=== PATIENT | male | born 2000 | race Caucasian/White ===

== ENCOUNTER 2019-04-08 03:45 | Emergency (ER) | payer SELFPAY ==
[2019-04-08 04:20] VITALS: BMI 19.6
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
[2019-04-08 06:02] LABS: BASO % 0.5 % (0-2.0); EOS % 1.6 % (0-4.5); HEMATOCRIT 46.7 % (35.4-49); MCH 29.3 pg (25.7-33.7); MCHC 34.2 g/dl (32.0-35.9); MEAN CELL VOLUME 85.6 fl (80-96); MEAN PLT VOLUME 9.7 fl (7.5-11.1); MONO % 5.7 % (3.8-10.2); NEUT % 65.2 % (42.8-82.8); PLATELET COUNT 177 K/MM3 (134-434); RBC 5.45 M/mm3 (4.00-5.60); RDW 13.4 % (11.9-15.9)
[2019-04-08 06:28] LABS: ALBUMIN 4.4 g/dl (3.4-5.0); BILIRUBIN,TOTAL 0.4 mg/dL (0.2-1); BLOOD UREA NITROGEN 13.8 mg/dL (7-18); CALCIUM 9.1 mg/dL (8.5-10.1); CREATININE 0.8 mg/dL (0.55-1.3); POTASSIUM 3.9 mmol/L (3.5-5.1)
[2019-04-08 06:29] LABS: PHOSPHOROUS 3.2 mg/dL (2.5-4.9)
[2019-04-08 06:41] VITALS: TEMP 98.1
[2019-04-08 07:40] VITALS: BP 114/73; PULSE 64
--- NOTE | 2019-04-08 11:31 | EKG ---
Test Reason : Blood Pressure : / mmHG Vent. Rate : 104 BPM Atrial Rate : 104 BPM P-R Int : 128 ms QRS Dur : 104 ms QT Int : 342 ms P-R-T Axes : 075 093 070 degrees QTc Int : 449 ms SINUS TACHYCARDIA RIGHTWARD AXIS ST ELEVATION, CONSIDER EARLY REPOLARIZATION, PERICARDITIS, OR INJURY ABNORMAL ECG NO PREVIOUS ECGS AVAILABLE Confirmed by SATISH VENEGAS MD ([id number]) on 04/08/2019 11:31:15 AM Referred By: Confirmed By:SATISH VENEGAS MD
== END 2019-04-08 07:39 | disposition home or self-care (01) ==
LOC: JER 03:45
DX: R55 Syncope and collapse (principal)
CPT/HCPCS: 36415; 71046-TC-FY; 80053; 82550; 84100; 84484; 85025; 93005; 93010; 99284-25

== ENCOUNTER 2019-12-27 16:24 | Emergency (ER) | payer OTHER ==
--- NOTE | 2019-12-27 16:36 | PDOC ---
Rapid Medical Evaluation Time Seen by Provider: 12/27/19 16:35 Medical Evaluation: Allergies Allergy/AdvReac Type Severity Reaction Status Date / Time No Known Allergies Allergy Verified 04/08/19 04:22 12/27/19 16:36 I have performed a brief in-person evaluation of this patient. The patient presents with a chief complaint of:L knee injury at work Pertinent physical exam findings:stable I have ordered the following:nothing The patient will proceed to the ED for further evaluation. Discharge Disposition - Diagnosis Left knee injury Qualifiers: Encounter type: initial encounter Qualified Code(s): S89.92XA - Unspecified injury of left lower leg, initial encounter - Referrals - Patient Instructions - Post Discharge Activity
[2019-12-27 16:42] VITALS: BP 109/69; PULSE 78; BMI 22.6
--- NOTE | 2019-12-27 17:41 | PDOC ---
History of Present Illness - General Chief Complaint: Injury Stated Complaint: LFT-KNEE INJRY Time Seen by Provider: 12/27/19 16:35 - History of Present Illness Initial Comments: 12/27/19 17:39 19-year-old male without comorbidities presents for evaluation of left knee pain. Patient states a 20 pound box fell on him from a height of 6 feet striking him in the medial aspect of [facility]. No prior problems with the left knee Past History - Medical History Allergies/Adverse Reactions: Allergies Allergy/AdvReac Type Severity Reaction Status Date / Time No Known Allergies Allergy Verified 12/27/19 16:36 Home Medications: Ambulatory Orders NK [No Known Home Medication] 04/08/19 - Psycho-Social/Smoking History Smoking History: Never smoked - Substance Abuse Hx (Audit-C & DAST Scrn) How often the patient has a drink containing alcohol: 2-4 times / month Number of drinks the patient has on a typical day: 1 or 2 How often the patient has six or more drinks on one occasion: Never Score: In Men: 4 or > Positive; In Women: 3 or > Positive: 2 Screen Result (Pos requires Nsg. Audit-10AR): Negative In the last yr the pt used illegal drug/Rx for NonMed reason: No Score: Yes response is considered Positive: 0 Screen Result (Positive result requires Nsg. DAST-10): Negative Review of Systems - Review of Systems Musculoskeletal: Yes: Joint Pain *Physical Exam - Vital Signs Last Vital Signs Temp Pulse Resp BP Pulse Ox 78 18 109/69 99 12/27/19 16:36 12/27/19 16:36 12/27/19 16:36 12/27/19 16:36 - Physical Exam 12/27/19 17:39 Left knee skin color and temperature range of motion 0-90 beyond that causes pain. There is tenderness over the VMO of the left knee. No instability no joint line tenderness no other areas of tenderness neurovascular intact full range of motion of the hip and ankle. Thigh and calf soft and nontender extensor mechanism is preserved Medical Decision Making - Medical Decision Making 12/27/19 17:40 Left knee contusion weight-bear as tolerated with crutches follow-up with orthopedic surgery 1 to 2 days for further evaluation and treatment options Tylenol Motrin for pain I have reviewed the pathophysiology with the patient. They are in agreement with the treatment plan all questions were answered to their satisfaction. Understanding for follow-up without fail was also conveyed to the patient. Again they are in agreement. Discharge - Discharge Information Problems reviewed: Yes Clinical Impression/Diagnosis: Left knee injury Qualifiers: Encounter type: initial encounter Qualified Code(s): S89.92XA - Unspecified injury of left lower leg, initial encounter Condition: Stable Disposition: HOME - Admission No - Follow up/Referral Referrals: Robinson Pérez DO [Staff Physician] - - Patient Discharge Instructions Additional Instructions: Tylenol Motrin for pain as directed. Return to the emergency room for worsening symptoms. Without fail follow-up with orthopedic surgery in 1 to 2 days for further evaluation and treatment options. You may weight-bear as tolerated with crutches. - Post Discharge Activity Work/Back to School Note: Back to Work
== END 2019-12-27 17:46 | disposition home or self-care (01) ==
LOC: JERFT 16:24 → JER 16:24 → JERFT 17:46
DX: S89.92XA Unspecified injury of left lower leg, initial encounter (principal)
CPT/HCPCS: 99283-25

== ENCOUNTER 2020-06-07 13:37 | Emergency (ER) | payer OTHER ==
[2020-06-07 13:49] VITALS: BP 114/72; PULSE 69; BMI 21.2
[2020-06-07 13:50] VITALS: TEMP 98.1
[2020-06-07] MEDS ORDERED: SODIUM CHLORIDE 0.9% 500 ML INFUS.BAG IV ONE (15:11)
[2020-06-07 16:08] LABS: BASO % 0.7 % (0-2.0); EOS % 0.3 % (0-4.5); HEMOGLOBIN 16.4 GM/dL (11.7-16.9); LYMPH % 26.2 % (8-40); MCH 29.3 pg (25.7-33.7); MCHC 33.5 g/dl (32.0-35.9); MEAN CELL VOLUME 87.5 fl (80-96); MEAN PLT VOLUME 10.1 fl (7.5-11.1); MONO % 5.4 % (3.8-10.2); NEUT % 67.4 % (42.8-82.8); PLATELET COUNT 165 K/MM3 (134-434); RDW 13.3 % (11.9-15.9)
[2020-06-07 16:32] LABS: POTASSIUM 4.1 mmol/L (3.5-5.1)
[2020-06-07 16:34] LABS: ALBUMIN 4.5 g/dl (3.4-5.0); CALCIUM 9.2 mg/dL (8.5-10.1)
[2020-06-07 16:35] LABS: BLOOD UREA NITROGEN 14.1 mg/dL (7-18)
[2020-06-07 16:37] LABS: CREATININE 0.8 mg/dL (0.55-1.3)
[2020-06-07 16:39] LABS: TOT PROT 8.4 g/dl (6.4-8.2)
== END 2020-06-07 17:31 | disposition home or self-care (01) ==
LOC: JER 13:37
DX: R10.13 Epigastric pain (principal)
CPT/HCPCS: 36415; 71046-TC-FY; 80053; 83690; 85025; 86900; 93005; 93010; 99284-25

== ENCOUNTER 2021-04-04 23:41 | Emergency (ER) | payer OTHER ==
[2021-04-04 23:47] VITALS: BP 130/77; PULSE 105; TEMP 97; BMI 20.7
== END 2021-04-05 00:15 | disposition left against medical advice (07) ==
LOC: JER 23:41
DX: S49.91XA Unspecified injury of right shoulder and upper arm, initial encounter (principal); W10.9XXA Fall (on) (from) unspecified stairs and steps, initial encounter
CPT/HCPCS: 99281-25